=== PATIENT | female | born 1995 | race Hispanic/Latino ===

== ENCOUNTER 2025-04-05 10:38 | Emergency (ER) | payer OTHER ==
[~2025-04-05] VITALS: Ht 154.9 cm; Wt 68.6 kg
[2025-04-05] MEDS ORDERED: NOXI1TAB PO (11:01)
[2025-04-05] MEDS ORDERED: OMEP40CA4 PO (11:01)
[2025-04-05] MEDS ORDERED: CELE1CAP99 PO (11:01)
[2025-04-05 11:56] LABS: BASO # 0.0 10^3/uL (0.0-0.2); BASO % 0.4 % (0.0-1.0); EOS # 0.2 10^3/uL (0.0-0.5); EOS % 1.7 % (0.0-3.0); LYMPH # 2.5 10^3/uL (1.5-5.0); LYMPH % 27.8 % (24.0-44.0); MONO # 0.7 10^3/uL (0.0-0.8); MONO % 8.0 % (2.0-8.0); NEUTROPHILS # 5.5 10^3/uL (1.5-8.5); NEUTROPHILS % 61.9 % (36.0-66.0); PLATELET COUNT, AUTOMATED 363 10^3/uL (150-450)
[2025-04-05 12:18] LABS: CALCIUM LEVEL 8.9 MG/DL (8.5-10.1); CARBON DIOXIDE LEVEL 23 MMOL/L (20-31); CHLORIDE LEVEL 105 MMOL/L (98-107); CREATININE FOR GFR 0.60 MG/DL (0.55-1.30); GLOMERULAR FILTRATION RATE > 90.0 (>60); POTASSIUM SERUM 4.4 MMOL/L (3.5-5.1); SODIUM LEVEL 141 MMOL/L (136-145)
[2025-04-05 12:22] LABS: HCG, SERUM QUALITATIVE NEGATIVE (NEGATIVE)
[2025-04-05] MEDS: ACETAMINOPHEN *IV* 1,000 MG in IV 1 EA IV ONE (13:26)
[2025-04-05] MEDS: NS (Normal Saline) 0.9% 1,000 ML IV ONE (13:26)
[2025-04-05] MEDS: MECLIZINE 25 MG TABLET PO ONE (13:26)
[2025-04-05 15:24] VITALS: BP 128/72; TEMP 98.5; O2SAT 99
== END 2025-04-05 15:31 | disposition home or self-care (01) ==
LOC: M ED 10:38
DX: R51.9 Headache, unspecified (principal); E11.9 Type 2 diabetes mellitus without complications; Z79.899 Other long term (current) drug therapy
CPT/HCPCS: 80048; 84703; 85025; 93005; 96361; 96365; 99284; J0131

== ENCOUNTER 2025-04-28 18:00 | Emergency (ER) | payer OTHER, MEDICAID ==
[~2025-04-28] VITALS: Ht 180.3 cm; Wt 69.1 kg
[~2025-04-28 18:00] MED LIST: CELE1CAP99 PO; NOXI1TAB PO; OMEP40CA4 PO
[2025-04-28 19:52] LABS: BASO # 0.1 10^3/uL (0.0-0.2); BASO % 0.3 % (0.0-1.0); EOS # 0.1 10^3/uL (0.0-0.5); EOS % 1.0 % (0.0-3.0); LYMPH # 3.3 10^3/uL (1.5-5.0); LYMPH % 22.8 % (24.0-44.0); MONO # 1.0 10^3/uL (0.0-0.8); MONO % 7.1 % (2.0-8.0); NEUTROPHILS # 9.9 10^3/uL (1.5-8.5); NEUTROPHILS % 68.3 % (36.0-66.0); PLATELET COUNT, AUTOMATED 250 10^3/uL (150-450)
[2025-04-28 20:16] LABS: CK-MB VALUE MASS < 1.0 NG/ML (<3.6)
[2025-04-28 20:18] LABS: ALT/SGPT 15 U/L (7.0-40); AST/SGOT 35 U/L (<34); CALCIUM LEVEL 9.2 MG/DL (8.5-10.1); CARBON DIOXIDE LEVEL 24 MMOL/L (20-31); CHLORIDE LEVEL 109 MMOL/L (98-107); CREATININE FOR GFR 0.54 MG/DL (0.55-1.30); GLOMERULAR FILTRATION RATE > 90.0 (>60); POTASSIUM SERUM 5.2 MMOL/L (3.5-5.1); SODIUM LEVEL 140 MMOL/L (136-145)
[2025-04-28 20:22] LABS: HCG, SERUM QUALITATIVE NEGATIVE (NEGATIVE)
[2025-04-28 20:23] LABS: CPK CREATINE PHOSPHOKINASE 102 U/L (34-145)
[2025-04-28] MEDS: KETOROLAC 30 MG/ML 1 ML VIAL IV ONE (21:00)
[2025-04-28 22:50] VITALS: BP 119/55; TEMP 98.8; O2SAT 99
== END 2025-04-28 22:51 | disposition home or self-care (01) ==
LOC: M ED 18:00
DX: R07.9 Chest pain, unspecified (principal); E04.1 Nontoxic single thyroid nodule
CPT/HCPCS: 71045; 80048; 80076; 82550; 82553; 84443; 84484; 84703; 85025; 93005; 93041; 94760; 96374; 99285; J1885